=== PATIENT | male | born 1945 | race Two or more races ===

== ENCOUNTER 2023-08-08 14:58 | Emergency (ER) | payer OTHER ==
[~2023-08-08] VITALS: Ht 172.7 cm; Wt 91.0 kg
[2023-08-08] MEDS ORDERED: CEPH500C PO ×3 (17:14→20:46)
[2023-08-08] MEDS ORDERED: BACDST PO ×3 (17:14→20:46)
[2023-08-08 20:12] VITALS: BP 150/81; PULSE 63; RESP 18; TEMP 98.2; O2SAT 97
== END 2023-08-08 20:15 | disposition home or self-care (01) ==
LOC: ER 14:58
DX: L03.317 Cellulitis of buttock (principal)
CPT/HCPCS: 73700